=== PATIENT | female | born 1965 | race Caucasian/White ===

== ENCOUNTER 2017-12-21 09:03 | Emergency (ER) | payer BC ==
[2017-12-21] MEDS ORDERED: CLINDAMYCIN 150 MG CAP PO ONE (09:18)
[2017-12-21] MEDS ORDERED: IBUPROFEN 600 MG TABLET PO ONE (09:20)
--- NOTE | 2017-12-21 09:24 | Emergency Department Record ---
History of Present Illness - General Chief complaint: Dental Stated complaint: DENTAL PAIN Time Seen by Provider: 12/21/17 09:13 Source: Patient Mode of Arrival: Ambulatory Limitations: No limitations - History of Present Illness Initial comments: The patient is here due to L upper dental pain for 3 days. She now is having mild swelling to the L cheek area. There is no pain with swallowing or fever. MD complaint: Tooth pain Onset/Timin -: Days(s) Location: Tooth # Severity scale (1-10): 7 Quality: Sharp Consistency: Constant Improves with: None Worsens with: None - Related Data Previous Rx's Medication Instructions Recorded Clindamycin HCl [Cleocin HCl] 300 mg PO QID #28 capsule 12/21/17 Ibuprofen [Motrin] 800 mg PO TID PRN #20 tab 12/21/17 Allergies Allergy/AdvReac Type Severity Reaction Status Date / Time aspirin Allergy SWELLING Verified 12/21/17 09:15 OF THE TONGUE Penicillins Allergy SWELLING Verified 12/21/17 09:15 OF THE TONGUE Travel Screening - Travel/Exposure Within Last 30 Days Have you traveled within the last 30 days?: No - Travel/Exposure Within Last Year Have you traveled outside the [place] in the last year?: No - Additonal Travel Details Have you been exposed to anyone with a communicable illness?: No - Travel Symptoms Symptom Screening: None Review of Systems Constitutional: Denies: Chills, Fever Past Medical History - SOCIAL HISTORY Smoking Status: Current every day smoker Alcohol Use: Occasional Drug Use: None - RESPIRATORY Hx Respiratory Disorders: No - CARDIOVASCULAR Hx Cardio Disorders: No - NEURO Hx Neuro Disorders: No - GI Hx GI Disorders: No - Hx Genitourinary Disorders: No - ENDOCRINE Hx Endocrine Disorders: No - MUSCULOSKELETAL Hx Musculoskeletal Disorders: No - PSYCH Hx Psych Problems: No - HEMATOLOGY/ONCOLOGY Hx Hematology/Oncology Disorders: No Family Medical History Any Significant Family History?: No Family Hx Comment (NOT TO BE USED IN PLACE OF ITEMS BELOW): Pt adopted Physical Exam - General General Appearance: Alert, Oriented x3, Cooperative, No acute distress - Head Head exam: Atraumatic, Normocephalic, Normal inspection - Eye Eye exam: Normal appearance, PERRL, EOMI - ENT ENT exam: negative: Normal exam (There is mild swelling and tenderness to the L maxillary area.) Teeth exam: Dental caries, Dental tenderness # (14, and 15.), Other (There is no gum line abscess that is drainable.). negative: Normal inspection Throat exam: Normal inspection. negative: Tonsillar erythema, Tonsillar exudate - Neck Neck exam: Normal inspection, Full ROM. negative: Lymphadenopathy, Meningismus , Tenderness Course Vital Signs 12/21/17 09:05 Temperature 98.0 F Pulse Rate 98 H Respiratory 16 Rate Blood Pressure 136/92 Pulse Ox 98 - Reevaluation(s) Reevaluation #1: The patient states she is able to take Motrin so we will start her on Motrin and Clindamycin and have her F/U with a Dentist ANEESH. 12/21/17 09:23 Disposition Disposition: Discharge Clinical Impression: Dental infection Disposition: Home, Self-Care Condition: (2) Stable Instructions: Dental Abscess (ED) Additional Instructions: Please continue the Motrin and Clindamycin as directed. Please see a Dentist ANEESH. Return to an ER for any worsening symptoms. Prescriptions: Clindamycin HCl [Cleocin HCl] 300 mg PO QID #28 capsule Ibuprofen [Motrin] 800 mg PO TID PRN #20 tab PRN Reason: Pain Forms: Patient Portal Access Time of Disposition: 09:24 Quality - Quality Measures Quality Measures: N/A - Blood Pressure Screening View Details: Yes Does Patient Have Any of the Following: No Blood Pressure Classification: Pre-Hypertensive BP Reading Systolic Measurement: 116 Diastolic Measurement: 89 Screening for High Blood Pressure: < Pre-Hypertensive BP, F/U Documented > [ [id number]] Pre-Hypertensive Follow-up Interventions: Referral to alternative/primary care provider.
== END 2017-12-21 09:37 | disposition home or self-care (01) ==
LOC: ER 09:03
DX: K04.7 Periapical abscess without sinus (principal); F17.210 Nicotine dependence, cigarettes, uncomplicated
CPT/HCPCS: 99282